=== PATIENT | female | born 2000 | race Caucasian/White ===

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

== ENCOUNTER 2020-05-12 23:48 | Emergency (ER) | payer OTHER ==
[~2020-05-12] VITALS: Ht 165.1 cm; Wt 65.9 kg
[2020-05-13] MEDS ORDERED: methylPREDNISolone 125 MG (Solu-MEDROL) VIAL IV STA (00:01)
--- NOTE | 2020-05-13 00:09 | ED Respiratory ---
General Chief Complaint: Respiratory Problems Stated Complaint: ASTHMA Source: patient Exam Limitations: no limitations History of Present Illness Date Seen by Provider: May 12, 2020 Time Seen by Provider: 23:55 Initial Comments Patient presents ER by private conveyance with her friend and chief complaint of shortness of air since last Monday progressively worsening. She went to a urgent care in [place] on Monday, 3 to 4 days ago and was started on prednisone as well as given a fluticasone inhaler. She was under the misconception that she was not to be using her albuterol inhaler while she is on fluticasone with salmeterol. She has not had any albuterol for over a day now. She feels her asthma is worse and she is very wheezy and tight in her chest. She is not having any pain fever or productive cough. No sick contacts around her. She is a student at [employer]. Her primary care doctor is in [place]. No nausea vomiting diarrhea constipation dysuria. Allergies and Home Medications Allergies Coded Allergies: No Known Drug Allergies (Unverified , 05/13/20) Home Medications Albuterol Sulfate 2.5 Mg/0.5 Ml Vial.neb, 2.5 MG INH Q4H Prescribed by: MURPHY ALDRIDGE on 05/13/2055 Benzonatate 100 Mg Capsule, 100 MG PO Q6H PRN for COUGH Prescribed by: MURPHY ALDRIDGE on 05/13/2055 Ondansetron 4 Mg Tab.rapdis, 4 MG PO Q6H PRN for NAUSEA/VOMITING Prescribed by: MURPHY ALDRIDGE on 05/13/2055 Patient Home Medication List Home Medication List Reviewed: Yes Review of Systems Review of Systems Constitutional: No chills, No fever, No malaise EENTM: No ear discharge, No ear pain, No blurred vision Respiratory: cough; No phlegm; short of breath Cardiovascular: No chest pain, No edema, No Hx of Intervention, No palpitations Gastrointestinal: No abdominal pain, No nausea Genitourinary: No discharge, No dysuria Musculoskeletal: No back pain, No joint pain All Other Systems Reviewed Negative Unless Noted: Yes Past Cgcogbg-[id number]-Jpqedg Hx Patient Social History Alcohol Use: Denies Use Smoking Status: Never a Smoker Physical Exam Vital Signs - First Documented 05/12/20 23:52 Temp 37.4 Pulse 114 Resp 28 B/P (MAP) 138/90 (106) Pulse Ox 99 O2 Delivery Room Air Capillary Refill : Height: '" Weight: lbs. oz. kg; BMI Method: General Appearance: WD/WN, mild distress Eyes: Bilateral Eye Normal Inspection, Bilateral Eye PERRL, Bilateral Eye EOMI HEENT: PERRL/EOMI, normal ENT inspection, pharynx normal Neck: full range of motion, normal inspection Respiratory: no accessory muscle use, respiratory distress (Mild), decreased breath sounds, wheezing (Faint expiratory) Cardiovascular: normal peripheral pulses, regular rate, rhythm, tachycardia Extremities: normal range of motion, normal capillary refill Neurologic/Psychiatric: alert, oriented x 3 Skin: normal color, warm/dry Progress/Results/Core Measures Suspected Sepsis SIRS Temperature: Pulse: Respiratory Rate: Laboratory Tests 05/13/20 00:00: White Blood Count 13.2H Blood Pressure / Mean: Laboratory Tests 05/13/20 00:00: Creatinine 0.72, Platelet Count 291, Total Bilirubin 0.1 Results/Orders Lab Results Laboratory Tests Test 05/13/20 00:00 05/13/20 00:01 05/13/20 00:15 Range/Units White Blood Count 13.2 H 4.3-11.0 10^3/uL Red Blood Count 4.36 3.80-5.11 10^6/uL Hemoglobin 12.7 11.5-16.0 g/dL Hematocrit 39 35-52 % Mean Corpuscular Volume 88 80-99 fL Mean Corpuscular Hemoglobin 29 25-34 pg Mean Corpuscular Hemoglobin Concent 33 32-36 g/dL Red Cell Distribution Width 12.4 10.0-14.5 % Platelet Count 291 130-400 10^3/uL Mean Platelet Volume 8.9 L 9.0-12.2 fL Immature Granulocyte % (Auto) 3 % Neutrophils (%) (Auto) 58 42-75 % Lymphocytes (%) (Auto) 31 12-44 % Monocytes (%) (Auto) 8 0-12 % Eosinophils (%) (Auto) 0 0-10 % Basophils (%) (Auto) 0 0-10 % Neutrophils # (Auto) 7.7 1.8-7.8 10^3/uL Lymphocytes # (Auto) 4.0 1.0-4.0 10^3/uL Monocytes # (Auto) 1.0 0.0-1.0 10^3/uL Eosinophils # (Auto) 0.0 0.0-0.3 10^3/uL Basophils # (Auto) 0.0 0.0-0.1 10^3/uL Immature Granulocyte # (Auto) 0.3 H 0.0-0.1 10^3/uL Sodium Level 141 135-145 MMOL/L Potassium Level 3.6 3.6-5.0 MMOL/L Chloride Level 106 98-107 MMOL/L Carbon Dioxide Level 21 21-32 MMOL/L Anion Gap 14 5-14 MMOL/L Blood Urea Nitrogen 12 7-18 MG/DL Creatinine 0.72 0.60-1.30 MG/DL Estimat Glomerular Filtration Rate > 60 BUN/Creatinine Ratio 17 Glucose Level 94 70-105 MG/DL Calcium Level 8.9 8.5-10.1 MG/DL Corrected Calcium 8.7 8.5-10.1 MG/DL Magnesium Level 2.0 1.6-2.4 MG/DL Total Bilirubin 0.1 0.1-1.0 MG/DL Aspartate Amino Transf (AST/SGOT) 14 5-34 U/L Alanine Aminotransferase (ALT/SGPT) 27 0-55 U/L Alkaline Phosphatase 60 40-136 U/L C-Reactive Protein High Sensitivity 0.24 0.00-0.50 MG/DL Total Protein 7.0 6.4-8.2 GM/DL Albumin 4.2 3.2-4.5 GM/DL Serum Test, Qualitative NEGATIVE NEGATIVE Blood Gas Puncture Site LEFT RADIAL Blood Gas Patient Temperature 37.4 Arterial Blood pH 7.45 H 7.37-7.43 Arterial Blood Partial Pressure CO2 34 L 35-45 MMHG Arterial Blood Partial Pressure O2 123 H 79-93 MMHG Arterial Blood HCO3 23 23-27 MMOL/L Arterial Blood Total CO2 24.4 21.0-31.0 MMOL/L Arterial Blood Oxygen Saturation 99 94-100 % Arterial Blood Base Excess 0.0 -2.5-2.5 MMOL/L Raman Test YES-POS Blood Gas Ventilator Setting NO Blood Gas Inspired Oxygen ROOM AIR Micro Results Microbiology 05/13/20 Influenza Types A,B Antigen (RACHELLE) - Final, Complete My Orders Orders - MURPHY ALDRIDGE Cbc With Automated Diff (05/13/20 00:00) Comprehensive Metabolic Panel (05/13/20 00:00) Hs C Reactive Protein (05/13/20 00:00) Influenza A And B Antigens (05/13/20 00:00) Chest Pa/Lat (2 View) (05/13/20 00:00) Magnesium (05/13/20 00:00) Arterial Blood Gas (05/13/20 00:01) Albuterol/Ipra Inhalation Soln (Duoneb I (05/13/20 00:15) Methylprednisolone Sod Succ (Solu-Medrol (05/13/20 00:01) Svn Small Volume Nebulizer (05/13/20 00:01) Hcg,Qualitative Serum (05/13/20 00:09) Lactated Ringers (Lr 1000 Ml Iv Solution (05/13/20 00:15) Medications Given in ED Current Medications Medications Dose Ordered Sig/Ruy Route Start Time Stop Time Status Last Admin Dose Admin Albuterol/ Ipratropium 3 ml ONCE ONCE INH 05/13/20 00:15 05/13/20 00:16 DC 05/13/20 00:14 3 ML Lactated Ringer's 1,000 ml @ 0 mls/hr Q0M ONCE IV 05/13/20 00:15 05/13/20 00:16 DC 05/13/20 00:20 0 MLS/HR Vital Signs/I&O 05/12/20 05/13/20 23:52 00:11 Temp 37.4 Pulse 114 Resp 28 B/P (MAP) 138/90 (106) Pulse Ox 99 99 O2 Delivery Room Air Room Air Capillary Refill : Progress Note : Time: 00:12 Progress Note Still tachycardic which could be due to her extra work of breathing from her asthma. We will give her some DuoNeb. We did explain to her that it is okay to continue taking HALEIGH while she is on inhaled corticosteroids and LABA. We will get a chest x-ray and some labs looking for pneumonia. We will swab her for flu. She had a negative Covid on Monday, 4 days ago. We will give her 1 L of lactated Ringer's. Diagnostic Imaging Diagonstic Imaging: Xray Plain Films/CT/US/NM/MRI: chest (2v) Comments No acute cardiopulmonary processes on a two-view chest x-ray Reviewed: Reviewed by Me Departure Impression Primary Impression: Influenza B Additional Impression: Asthma Qualified Codes: J45.21 - Mild intermittent asthma with (acute) exacerbation Disposition: 01 HOME, SELF-CARE Condition: Stable Departure-Patient Inst. Decision time for Depature: 00:43 Referrals: [facility] (PCP/Family) Primary Care Physician Patient Instructions: Flu, Adult (DC) Add. Discharge Instructions: You have influenza. This is a virus that typically last about 10 to 14 days. Influenza can cause some body aches, fevers, chills, cough, nausea shortness of air. I steroids will probably not help with the influenza. I advised to discontinue taking them tonight. It is okay to continue the fluticasone breathing treatment as well as the a lbuterol until you are feeling better. Albuterol every 6 hours while awake through nebulizer or inhaler. More frequently as necessary for coughing fits, shortness of air or wheezing. Drink plenty of fluids. Zofran/ondansetron 1 tablet under the tongue every 6 hours as necessary for nausea and/or vomiting. Tessalon Perles 1 capsule every 6 hours as necessary for cough. Promptly return to the nearest ER if you are having difficulty breathing or other worrisome symptoms. Tylenol and/or ibuprofen as necessary for fever, body aches or chills. All discharge instructions reviewed with patient and/or family. Voiced understanding. Scripts Benzonatate (Tessalon Perle) 100 Mg Capsule 100 MG PO Q6H PRN for COUGH, #20 CAP 0 Refills Prov: MURPHY ALDRIDGE 05/13/20 Nebulizer and Compressor (Compressor Nebulizer System) 1 Each Each EACH MC Q4H for Wheezing, #1 0 Refills Prov: MURPHY ALDRIDGE 05/13/20 Albuterol Sulfate (Albuterol Sulfate) 2.5 Mg/0.5 Ml Vial.neb 2.5 MG INH Q4H for SHORTNESS OF BREATH, #60 EACH 0 Refills Prov: MURPHY ALDRIDGE 05/13/20 Ondansetron (Ondansetron Odt) 4 Mg Tab.rapdis 4 MG PO Q6H PRN for NAUSEA/VOMITING, #8 TAB 0 Refills Prov: MURPHY ALDRIDGE 05/13/20 Work/School Note: School/Childcare Release Date Seen in the Emergency Department: May 13, 2020 Time Dismissed from Emergency Department: 00:57 Return to School: May 18, 2020 Restrictions: No Restrictions Other Restrictions Listed Below: Off isolation when 24 hours symptom-free without meds to mask symptoms. Copy Copies To 1: SALVATORE FRANKS MD, TITUS J May 13, 2020 00:09
[2020-05-13 00:11] LABS: BASOPHILS % (AUTO) 0 % (0-10); EOSINOPHILS % (AUTO) 0 % (0-10); HEMATOCRIT 39 % (35-52); HEMOGLOBIN 12.7 g/dL (11.5-16.0); LYMPHOCYTES % (AUTO) 31 % (12-44); MEAN CORPUSCULAR HEMOGLOBIN 29 pg (25-34); MEAN CORPUSCULAR HGB CONC 33 g/dL (32-36); MEAN CORPUSCULAR VOLUME 88 fL (80-99); MEAN PLATELET VOLUME 8.9 fL (9.0-12.2); MONOCYTES % (AUTO) 8 % (0-12); NEUTROPHILS # (AUTO) 7.7 10^3/uL (1.8-7.8); NEUTROPHILS % (AUTO) 58 % (42-75); PLATELET COUNT 291 10^3/uL (130-400); WHITE BLOOD COUNT 13.2 10^3/uL (4.3-11.0)
[2020-05-13] MEDS ORDERED: RT-ALBUTEROL/IPRATROPIUM 3 ML (DUONEB) VIAL INH ONE (00:15)
[2020-05-13] MEDS ORDERED: LACTATED RINGERS 1,000 ML IV ONE (00:15)
[2020-05-13 00:20] LABS: ALBUMIN 4.2 GM/DL (3.2-4.5); CHLORIDE 106 MMOL/L (98-107); POTASSIUM 3.6 MMOL/L (3.6-5.0); SODIUM 141 MMOL/L (135-145)
[2020-05-13 00:21] LABS: CALCIUM 8.9 MG/DL (8.5-10.1)
[2020-05-13 00:23] LABS: GLUCOSE 94 MG/DL (70-105)
[2020-05-13 00:24] LABS: BILIRUBIN,TOTAL 0.1 MG/DL (0.1-1.0); CARBON DIOXIDE 21 MMOL/L (21-32)
[2020-05-13 00:25] LABS: ABG OXYGEN SATURATION 99 % (94-100); ABG PCO2 34 MMHG (35-45); ABG PH 7.45 (7.37-7.43); ABG PO2 123 MMHG (79-93); ABG TCO2 24.4 MMOL/L (21.0-31.0)
[2020-05-13 00:26] LABS: ALLENS TEST YES-POS; INSPIRED O2 ROOM AIR; PATIENT TEMP 37.4; VENTILATOR NO
[2020-05-13 00:26] LABS: ALKALINE PHOSPHATASE 60 U/L (40-136); CREATININE SERUM 0.72 MG/DL (0.60-1.30); GFR ESTIMATED > 60
[2020-05-13 00:27] LABS: BUN/CREATININE RATIO 17
[2020-05-13 00:29] LABS: ALANINE AMINOTRANSFERASE 27 U/L (0-55)
[2020-05-13] MEDS ORDERED: ONDA4TAB11 PO (00:56)
[2020-05-13] MEDS ORDERED: NEBU-186 MC (00:56)
[2020-05-13] MEDS ORDERED: BENZ-13 PO (00:56)
[2020-05-13] MEDS ORDERED: ALB0.5V INH (00:56)
[2020-05-13 01:13] VITALS: BP 140/84
--- NOTE | 2020-05-13 07:26 | Diagnostic Imaging Report ---
INDICATION: Shortness air, wheezing FINDINGS: 2 views of the chest demonstrate the lungs to be clear. The heart, mediastinum and pulmonary vascularity and visualized bony thorax are normal. There is no hyperinflation. IMPRESSION: Normal chest. Dictated by: Dictated on workstation # [id number]
== END 2020-05-13 01:13 | disposition home or self-care (01) ==
LOC: EDUNIT# 23:48 → ER 23:50
DX: J10.1 Influenza due to other identified influenza virus with other respiratory manifestations (principal); J45.909 Unspecified asthma, uncomplicated; I10 Essential (primary) hypertension
CPT/HCPCS: 36415; 71046; 80053; 82805; 83735; 84703; 85025; 86141; 87804; 94640